=== PATIENT | female | born 1965 | race Caucasian/White ===

== ENCOUNTER 2018-11-10 08:25 | Emergency (ER) | payer BC ==
[2018-11-10 08:56] VITALS: BP 142/85
--- NOTE | 2018-11-10 09:29 | UC ---
Hand/Wrist HPI - HPI Summary HPI Summary: 53 yo female presents with LEFT thumb/wrist pain. She tells me that about 1 month ago she was running and stumbled backwards landing on her hands and wrists. Her left hand and thumb were bent awkwardly when she fell and for the next few days she had discomfort in these areas, but resolved with rest. Yesterday she was "rough housing" with her daughter and afterwards noticed the pain returned to the base of her left thumb. Discomfort has continued into today. She is right handed. Pain is worse with gripping objects. Denies numbness or tingling. - History Of Current Complaint Chief Complaint: UCUpperExtremity Stated Complaint: WRIST INJURY Time Seen by Provider: 11/10/18 08:58 Hx Obtained From: Patient Hx Last Menstrual Period: 11/06/14 Onset/Duration: Gradual Onset Severity Initially: Mild Severity Currently: Mild Pain Intensity: 2 Pain Scale Used: 0-10 Numeric - Allergies/Home Medications Allergies/Adverse Reactions: Allergies Allergy/AdvReac Type Severity Reaction Status Date / Time No Known Allergies Allergy Verified 11/10/18 08:56 PMH/Surg Hx/FS Hx/Imm Hx - Additional Past Medical History Additional PMH: None - Surgical History Surgical History: None - Family History Known Family History: Positive: None - Social History Occupation: Employed Full-time Lives: With Family Alcohol Use: Occasionally Substance Use Type: None Smoking Status (MU): Never Smoked Tobacco Review of Systems All Other Systems Reviewed And Are Negative: Yes Constitutional: Positive: Negative Skin: Positive: Negative Respiratory: Positive: Negative Cardiovascular: Positive: Negative Neurovascular: Positive: Negative Musculoskeletal: Positive: Other: - Left thumb pain Neurological: Positive: Negative Psychological: Positive: Negative Physical Exam - Summary Physical Exam Summary: GENERAL: NAD. WDWN. No pain distress. SKIN: No rashes, sores, lesions, or open wounds. CHEST: No accessory muscle use. Breathing comfortably and in no distress. CV: Pulses intact radial and ulnar. Cap refill <2seconds MSK: LEFT HAND: Mild TTP at CMC joint of 1st digit. NTTP MCP or IP of 1st digit. FROM at wrist without pain. Strength 5/5 including geodetic engineer strength. No snuffbox tenderness. NEURO: Alert. Sensations intact hand and all fingers. PSYCH: Age appropriate behavior. Triage Information Reviewed: Yes Vital Signs: Initial Vital Signs Temp 98.4 F 11/10/18 08:53 Pulse 89 11/10/18 08:53 Resp 18 11/10/18 08:53 BP 142/85 11/10/18 08:53 Pulse Ox 98 11/10/18 08:53 Vital Signs Reviewed: Yes Hand/Wrist Course/Dx - Course Course Of Treatment: XR: IMPRESSION: #. Negative for fracture or articular malalignment at the LEFT wrist or hand. #. Osteoarthritis at the basal joint of the thumb. Suspect arthritic pain vs thumb sprain. Pt was placed in a thumb spica spint and advised to f/u with Orthopedics. I suspect she would benefit from a steroid injection into the hand/wrist for her arthritis. Advised to rest, ice, and take tylenol/ibuprofen as directed for discomfort. - Differential Dx/Diagnosis Provider Diagnosis: Pain of left thumb Discharge - Sign-Out/Discharge Documenting (check all that apply): Patient Departure All imaging exams completed and their final reports reviewed: Yes - Discharge Plan Condition: Stable Disposition: HOME Patient Education Materials: Osteoarthritis (DC) Referrals: Iveth Rutledge MD [Primary Care Provider] - Ramses Sevilla MD [Medical Doctor] - If Needed Additional Instructions: If you develop a fever, shortness of breath, chest pain, new or worsening symptoms - please call your PCP or go to the ED immediately. Your blood pressure was slightly elevated at todays visit. Please see your primary provider within 4 weeks for recheck and re-evaluation. 1) Your X-Ray showed some arthritis around the base of your thumb 2) Please rest and apply ice to the area. May take tylenol or ibuprofen as directed for discomfort 3) Use the thumb splint/brace for support and comfort 4) I recommend that you follow up with Orthopedics for further evaluation and treatment - Billing Disposition and Condition Condition: STABLE Disposition: Home
== END 2018-11-10 09:52 | disposition home or self-care (01) ==
LOC: UCEAST 08:25
DX: M79.645 Pain in left finger(s) (principal); M19.042 Primary osteoarthritis, left hand
CPT/HCPCS: 99212; G0463